=== PATIENT | male | born 1980 | race Caucasian/White ===

== ENCOUNTER → 2017-05-04 10:07 | Outpatient (CLI) | payer BC, SELFPAY ==
--- NOTE | 2017-05-04 10:20 | RAD_ITS ---
CLINICAL HISTORY: Male, 37 years old. Left shoulder instability. PROCEDURE: ARTHROGRAM - LEFT SHOULDER CONSENT: The procedure as well as the benefits and possible complications including infection and bleeding were explained to the patient. Informed consent was obtained. FLUOROSCOPY TIME (if supplied): (1:13) minutes/seconds Injection Information: 10 cc of dilute MRI contrast. Number of images obtained: 4 TECHNIQUE: (All elements of maximal sterile barrier technique followed, including US elements as applicable) The patient was in the supine position. The overlying skin was prepped and draped in the usual sterile fashion. Following local anesthetic application and under direct radiographic fluoroscopic guidance, a 22-gauge spinal needle was advanced into the shoulder joint. 2 cc of Isovue-300 was injected for confirmation. Following this, 10 cc of dilute gadolinium MRI contrast was injected. The patient tolerated the procedure well. RAD/Arthrogram Shoulder w/ MRI IMPRESSION: Successful left shoulder arthrogram with injection of 10 cc of dilute gadolinium for MRI imaging. Electronically Signed: Bennie Thomas MD at 11:23 EDT Tel [phone], Service support ,
--- NOTE | 2017-05-04 11:30 | MRI_ITS ---
STUDY: MRI LEFT SHOULDER REASON FOR EXAM: Male, 37 years old. Left-sided shoulder instability. TECHNIQUE: Standardized fat and water weighted pulse sequences were obtained in all 3 orthogonal planes. COMPARISON: Arthrogram radiographs obtained May 04, 2017. FINDINGS: There is supraspinatus tendinosis with tendon thickening, but without a demonstrated tendon tear. Normal infraspinatus tendon. Normal subscapularis tendon. Normal teres minor tendon. Normal supraspinatus muscle. Normal infraspinatus muscle. Normal subscapularis muscle. Normal teres minor muscle. Normal glenohumeral articulation. Normal humeral head and visualized proximal humerus. Normal biceps labral complex. Normal intracapsular long biceps tendon. Normal labrum. Normal capsulo- ligamentous complex. There is mild osteoarthritis of the acromioclavicular articulation. There is a Type I morphology (flat undersurface), with a neutral orientation. There is no subacromial-subdeltoid bursal fluid. Normal visualized coracohumeral and coracoacromial ligaments. Normal deltoid muscle. Normal trapezius muscle. MRI/Upper Ext Jt Only W/Contrast IMPRESSION: 1. No MR evidence for rotator cuff tendon tears or ligamentous disruption. 2. Tendinopathy of the supraspinatus tendon. Electronically Signed: Tasneem Gayle MD at 13:07 EDT , Service support ,
== END ==
PROVIDERS: Family Provider Family Medicine; PCP Family Medicine; Visit Provider Specialist
DX: M25.312 Other instability, left shoulder (principal)
CPT/HCPCS: 23350; 73222; 77002; A9577; Q9967